=== PATIENT | female | born 1960 | race Caucasian/White ===

== ENCOUNTER 2017-09-07 09:25 | Observation (INO) ==
[2017-09-07] MEDS ORDERED: Aspirin 325 MG Tablet PO ONE (09:40)
--- NOTE | 2017-09-07 09:44 | ED ---
HPI General Chief Complaint: Chest Pain Stated Complaint: Chest Pain Time Seen by Provider: 09/07/17 09:36 Source: patient, RN notes reviewed and old records reviewed Mode of arrival: ambulatory Limitations: no limitations History of Present Illness HPI narrative: 57-year-old female notes central chest pain that started about 3 AM this morning that went away shortly prior to arrival. She states that she has not had this before and denies prior cardiac workup. She denies taking an aspirin yet today. MD complaint: chest pain Complete Quality Measures for STEMI Alert Patients Onset (ago): hour(s) Duration: constant Onset: during rest Severity: mild Quality: tightness Pain radiation: none Relieving factors: nothing Exacerbating factors: nothing Treatments prior to arrival chest pain: none Related Data Home Medications Medication Instructions Recorded Confirmed conjugated estrogens [Premarin] 0.9 mg PO DAILY 09/07/17 09/07/17 metoprolol succinate 50 mg PO DAILY 09/07/17 09/07/17 Allergies Allergy/AdvReac Type Severity Reaction Status Date / Time erythromycin base AdvReac Gastrointestinal Verified 09/07/17 09:41 Upset Review of Systems Except as stated in HPI: all other systems reviewed are negative PMFSH History History Provided By: Patient (Hypertension and on hormone replacement after her hysterectomy, cholecystectomy, denies family history) Medical History Medical History Alcohol abuse, daily use (Acute) History of hysterectomy (Acute) Hypertension (Acute) Surgical History Surgical History Hx of appendectomy (Acute) Hx of cholecystectomy (Acute) Social History Social History Substance History: No History of Abuse Second Hand Smoke Exposure: No Smoking Status: Former smoker How Often Do You Have a Drink Containing Alcohol: 4 or more times a week Recent Travel in [facility] within the Last 8 Weeks: No Recent Out of Country Travel within the Last 8 Weeks: No Exam Narrative Exam Narrative: GENERAL: 57-year-old female in no apparent distress SKIN: Focused skin assessment warm/dry. HEAD: Atraumatic. Normocephalic. EYES: Pupils equal and round. No scleral icterus. No injection or drainage. ENT: No nasal bleeding or discharge. Mucous membranes pink and moist. NECK: Trachea midline. No JVD. CARDIOVASCULAR: Regular rate and rhythm. No murmur appreciated. RESPIRATORY: No accessory muscle use. Clear to auscultation. Breath sounds equal bilaterally. GASTROINTESTINAL: Abdomen soft, nondistended. MUSCULOSKELETAL: No obvious deformities. No clubbing. No cyanosis NEUROLOGICAL: Awake and alert. No obvious cranial nerve deficits. Motor grossly within normal limits. Normal speech. PSYCHIATRIC: Appropriate mood and affect; insight and judgment normal. Course Reevaluation(s) Reevaluation #1: Patient updated and without new complaints. Agrees to chest pain center observation Initial Documented Vital Signs Temperature 98.5 F 09/07/17 09:27 Pulse Rate 69 09/07/17 09:27 Respiratory Rate 16 09/07/17 09:27 Blood Pressure 166/78 H 09/07/17 09:27 Pulse Oximetry 100 09/07/17 09:27 Last Documented Vital Signs Temperature 98.5 F 09/07/17 09:27 Pulse Rate 71 09/07/17 09:32 Respiratory Rate 16 09/07/17 09:27 Blood Pressure 174/92 H 09/07/17 09:44 Pulse Oximetry 99 09/07/17 09:44 Medical Decision Making MDM Narrative Medical decision making narrative: Will check blood work, x-ray and dose with aspirin and reevaluate Differential Diagnosis Differential Diagnosis: PE, musculoskeletal, gastritis, DC Lab Data Lab results reviewed: Yes I reviewed the patient's lab results. Result diagrams: 09/07/17 09:50 09/07/17 09:50 Lab Results 09/07/17 09/07/17 09/07/17 Range/Units 09:50 09:50 09:50 WBC 11.8 H (4.0-11.0) th/mm3 RBC 4.20 (4.00-5.30) mil/mm3 Hgb 12.5 (11.6-15.3) gm/dL Hct 37.3 (35.0-46.0) % MCV 88.9 (80.0-100.0) fL MCH 29.7 (27.0-34.0) pg MCHC 33.4 (32.0-36.0) % RDW 14.1 (11.6-17.2) % Plt Count 340 (150-450) th/mm3 MPV 8.7 (7.0-11.0) fL Neut % (Auto) 75.0 H (16.0-70.0) % Lymph % (Auto) 16.2 (9.0-44.0) % [place] % (Auto) 7.2 (0.0-8.0) % Eos % (Auto) 0.9 (0.0-4.0) % Baso % (Auto) 0.7 (0.0-2.0) % Neut # (Auto) 8.9 H (1.8-7.7) th/mm3 Lymph # (Auto) 1.9 (1.0-4.8) th/mm3 [place] # (Auto) 0.9 (0.0-0.9) th/mm3 Eos # (Auto) 0.1 (0.0-0.4) th/mm3 Baso # (Auto) 0.1 (0.0-0.2) th/mm3 WBC Differential . Differential Comment Auto diff final PT 9.9 (9.8-11.6) sec INR 1.0 Ratio APTT 24.8 (24.3-30.1) sec D-Dimer Quant (PE/DVT) 0.48 (0.00-0.50) mg/L FEU Sodium 139 (136-145) meq/L Potassium 4.3 (3.5-5.1) meq/L Chloride 106 (98-107) meq/L Carbon Dioxide 24.5 (21.0-32.0) meq/L Anion Gap 9 (5-15) meq/L BUN 11 (7-18) mg/dL Creatinine 0.65 (0.50-1.00) mg/dL Estimated GFR Greater than 89 (>89) mL/min Random Glucose 95 (74-106) mg/dL Calcium 8.5 (8.5-10.1) mg/dL Magnesium 2.0 (1.5-2.5) mg/dL Total Creatine Kinase 36 (26-192) U/L Troponin I Less than 0.02 L (0.02-0.05) ng/mL Imaging Data Attestation: I personally reviewed and interpreted this imaging study as follows : Radiologist's impression: Chest X-Ray 09/07/17 09:40 CONCLUSION: Negative examination. Discharge Plan Discharge Disposition Patient Disposition: 30 Still Patient Discharge Condition Condition: Stable Discharge Details Diagnosis: Chest pain Physicians Team ED Provider: Geno Ochoa Primary Care Provider: Primary Care Elenita Macias Attending Provider: Bette Schneider Discharge Interventions Interventions: Vital Signs Last Done: 09/07/17 09:32 Status ED Status: Admitted Observation Patient
--- NOTE | 2017-09-07 10:17 | XR ---
EXAM DATE: 09/07/2017 10:13 AM EDT AGE/SEX: 57 years / Female INDICATIONS: Chest pain. CLINICAL DATA: This is the patient's initial encounter. Patient reports that signs and symptoms have been present for 1 day and indicates a pain score of 6/10. MEDICAL/SURGICAL HISTORY: None. None. COMPARISON: No prior exams available for comparison. FINDINGS: Cardiomegaly. No consolidation or effusion. Probable fat pad right medial lung base. Osseous structur es are intact. CONCLUSION: Negative examination. Electronically signed by: Miguel Glaser MD 09/07/2017 10:16 AM EDT
[2017-09-07 10:18] LABS: Baso # (Auto) 0.1 th/mm3 (0.0-0.2); Baso % (Auto) 0.7 % (0.0-2.0); Eos # (Auto) 0.1 th/mm3 (0.0-0.4); Eos % (Auto) 0.9 % (0.0-4.0); Hematocrit 37.3 % (35.0-46.0); Hemoglobin 12.5 gm/dL (11.6-15.3); Lymph # (Auto) 1.9 th/mm3 (1.0-4.8); Lymph % (Auto) 16.2 % (9.0-44.0); Mean Corpuscular HGB Conc 33.4 % (32.0-36.0); Mean Corpuscular Hemoglobin 29.7 pg (27.0-34.0); Mean Corpuscular Volume 88.9 fL (80.0-100.0); Mean Platelet Volume 8.7 fL (7.0-11.0); Mono # (Auto) 0.9 th/mm3 (0.0-0.9); Mono % (Auto) 7.2 % (0.0-8.0); Neut # (Auto) 8.9 th/mm3 (1.8-7.7); Platelet Count 340 th/mm3 (150-450); Red Cell Distribution Width 14.1 % (11.6-17.2); White Blood Count 11.8 th/mm3 (4.0-11.0)
[2017-09-07 10:30] LABS: Activated Partial Thrombo Time 24.8 sec (24.3-30.1); Prothrombin Time 9.9 sec (9.8-11.6)
[2017-09-07 10:38] LABS: D-Dimer 0.48 mg/L FEU (0.00-0.50)
[2017-09-07 10:39] LABS: Anion Gap 9 meq/L (5-15); Blood Urea Nitrogen 11 mg/dL (7-18); Calcium 8.5 mg/dL (8.5-10.1); Carbon Dioxide 24.5 meq/L (21.0-32.0); Chloride 106 meq/L (98-107); Glomerular Filtration Rate Greater Than 89 mL/min (>89); Glucose,Random 95 mg/dL (74-106); Potassium 4.3 meq/L (3.5-5.1); Sodium 139 meq/L (136-145)
[2017-09-07 10:53] LABS: Creatine Kinase 36 U/L (26-192)
[2017-09-07] MEDS ORDERED: Acetaminophen 500 MG Tablet PO PRN (11:42)
--- NOTE | 2017-09-07 13:26 | P.HPCA ---
History of Present Illness Primary Care Physician: Primary Care Physician in [place], [place] Chief Complaint: Chest pain History of Present Illness: 57-year-old female with history of hypertension presents emergency room for further evaluation chest pain. Onset 3:30 AM. Discomfort awakened her from sleep. Location substernal. Characterized as tightness. Severe in severity. Initially felt discomfort may have been indigestion or gas. Radiation to right side of neck and right ear. No associated symptoms of nausea, vomiting, dyspnea , or diaphoresis. x 4 bowel movements between 7-8 am, during this time became diaphoretic. No precipitating or relieving factors. No particular movement or position made pain better or worse. Deep breathing did not worsen discomfort. Duration 5 hours. Discomfort gradually eased up around 8:15 AM. Called a friend to take her to ER. Once friend arrived, discomfort completely resolved. No further discomfort. Denies similar pain in the past. No known coronary artery disease. No recent illness, fever, cough, or injury. No history of GERD. Ate macaroni and cheese 3 hours before going to bed. No past cardiac testing. Family history noncontributory for early onset cardiovascular disease. - Diagnosis (1) Chest pain of unknown etiology (2) H/O: hypertension Review of Systems All other systems reviewed negative except as stated [facility] - History History Provided By: Patient (Hypertension and on hormone replacement after her hysterectomy, cholecystectomy, denies family history) - Medical History Medical History: Medical History (Last Reviewed 09/07/17 @ 14:04 by MUNIRA Blanton) Alcohol abuse, daily use History of hysterectomy Hypertension - Surgical History Surgical History: Surgical History (Last Reviewed 09/07/17 @ 14:04 by MUNIRA Blanton) Hx of cholecystectomy - Tobacco History Second Hand Smoke Exposure: No Tobacco Use In Past 30 Days: No Smoking Status: Former smoker - Alcohol History How Often Do You Have a Drink Containing Alcohol: 4 or more times a week - Substance Use History Substance History: No History of Abuse - Travel History Recent Travel in the [place] Within the Last 8 Weeks: No Recent Travel Out of the Country Within the Last 8 Weeks: No - Immunization History Tetanus Immunization: Unsure Hx Influenza Vaccine This Season: No Medications and Allergies Active Medications: Active Medications Acetaminophen (Tylenol) 500 mg PO Q4H PRN PRN Reason: HEADACHE Nitroglycerin (Nitrostat Sl) 0.4 mg SL Q5M PRN PRN Reason: CHEST PAIN Ondansetron HCl (Zofran Odt) 4 mg PO Q6H PRN PRN Reason: NAUSEA Sodium Chloride (Ns Flush) 2 ml IV.FLUSH BID LG Sodium Chloride (Ns Flush) 2 ml IV.FLUSH PRN PRN PRN Reason: FLUSH AFTER USING IV ACCESS Allergies Allergy/AdvReac Type Severity Reaction Status Date / Time erythromycin base AdvReac Gastrointestinal Verified 09/07/17 09:41 Upset Home Medications Medication Instructions Recorded Confirmed Type conjugated estrogens [Premarin] 0.9 mg PO DAILY 09/07/17 09/07/17 History metoprolol succinate 50 mg PO DAILY 09/07/17 09/07/17 History Exam Vital signs: Vital Signs 09/07/17 09:27 09/07/17 09:32 09/07/17 09:44 Temperature 98.5 F Pulse Rate 69 71 Respiratory Rate 16 Blood Pressure 166/78 H Blood Pressure [Left Arm] 172/90 H Blood Pressure [Right Arm] 174/92 H Pulse Oximetry 100 99 99 09/07/17 13:19 Temperature Pulse Rate 70 Respiratory Rate 19 Blood Pressure 170/78 H Blood Pressure [Left Arm] Blood Pressure [Right Arm] Pulse Oximetry 99 Intake & Output 09/06/17 09/07/17 09/07/17 18:59 06:59 18:59 Weight 71.668 kg Narrative: GENERAL: Alert WN, WD, NAD, pleasant, female HEAD: NC, AT EYES: Sclera clear, conjunctiva without injection, pupils equal and round ENT: Mucous membranes pink and moist NECK: Supple, no masses, trachea midline CV: RRR, without murmur, rub, gallop. Chest wall nontender with palpation. RESP: Clear lungs throughout bilateral, no crackles, wheeze, rhonchi, symmetrical chest rise, nonlabored, able to speak in full sentences ABD: Soft, NT, ND, no masses, positive bowel tones EXT: Pulses +2x4, no dependent edema MS: Normal tone x4 extremities, nontender, no obvious deformities, full range of motion NEURO: CN II through CN XII grossly intact, motor strength 5/5 PSYCH: A+O x3, flat affect, appropriate speech, mood, insight and judgment SKIN: Normal turgor, normal texture, no lesions, no rashes Results 09/07/17 09:50 09/07/17 09:50 Cardiac Enzymes 09/07/17 Range/Units 09:50 Troponin I Less than 0.02 L (0.02-0.05) ng/mL Coagulation 09/07/17 Range/Units 09:50 PT 9.9 (9.8-11.6) sec APTT 24.8 (24.3-30.1) sec CBC 09/07/17 Range/Units 09:50 WBC 11.8 H (4.0-11.0) th/mm3 RBC 4.20 (4.00-5.30) mil/mm3 Hgb 12.5 (11.6-15.3) gm/dL Hct 37.3 (35.0-46.0) % Plt Count 340 (150-450) th/mm3 Neut # (Auto) 8.9 H (1.8-7.7) th/mm3 Lymph # (Auto) 1.9 (1.0-4.8) th/mm3 [place] # (Auto) 0.9 (0.0-0.9) th/mm3 Eos # (Auto) 0.1 (0.0-0.4) th/mm3 Baso # (Auto) 0.1 (0.0-0.2) th/mm3 Comprehensive Metabolic Panel 09/07/17 Range/Units 09:50 Sodium 139 (136-145) meq/L Potassium 4.3 (3.5-5.1) meq/L Chloride 106 (98-107) meq/L Carbon Dioxide 24.5 (21.0-32.0) meq/L BUN 11 (7-18) mg/dL Creatinine 0.65 (0.50-1.00) mg/dL Calcium 8.5 (8.5-10.1) mg/dL Intake and Output 09/06/17 09/07/17 09/07/17 22:59 06:59 14:59 Other: Weight 71.668 kg Patient Weight 09/08/17 06:59 Weight 71.668 kg EKG interpretations - EKG EKG results cardiology: sinus rhythm, normal axis, normal QRS, normal ST/T Caprini VTE Risk Assessment Caprini VTE Risk Assessment: No/Low Risk (score <= 1) Caprini Risk Assessment Model: Point Value = 1 Point Value = 2 Point Value = 3 Point Value = 5 Age 41-60 Minor surgery BMI > 25 kg/m2 Swollen legs Varicose veins or History of unexplained or recurrent spontaneous Oral contraceptives or hormone replacement Sepsis (< 1 month) Serious lung disease, including pneumonia (< 1 month) Abnormal pulmonary function Acute myocardial infarction Congestive heart failure (< 1 month) History of inflammatory bowel disease Medical patient at bed rest Age 61-74 Arthroscopic surgery Major open surgery (> 45 min) Laparoscopic surgery (> 45 min) Malignancy Confined to bed (> 72 hours) Immobilizing plaster cast Central venous access Age >= 75 History of VTE Family history of VTE Factor V Leiden Prothrombin [id number] Lupus anticoagulant Anticardiolipin antibodies Elevated serum homocysteine Heparin-induced thrombocytopenia Other congenital or acquired thrombophilia Stroke (< 1 month) Elective arthroplasty Hip, pelvis, or leg fracture Acute spinal cord injury (< 1 month) Prophylaxis Regimen: Total Risk Factor Score Risk Level Prophylaxis Regimen 0-1 Low Early ambulation 2 Moderate Order ONE of the following: *Sequential Compression Device (SCD) *Heparin 5000 units SQ BID 3-4 Higher Order ONE of the following medications: *Heparin 5000 units SQ TID *Enoxaparin/Lovenox 40 mg SQ daily (WT < 150 kg, CrCl > 30 mL/min) *Enoxaparin/Lovenox 30 mg SQ daily (WT < 150 kg, CrCl > 10-29 mL/min) *Enoxaparin/Lovenox 30 mg SQ BID (WT < 150 kg, CrCl > 30 mL/min) AND/OR *Sequential Compression Device (SCD) 5 or more Highest Order ONE of the following medications: *Heparin 5000 units SQ TID (Preferred with Epidurals) *Enoxaparin/Lovenox 40 mg SQ daily (WT < 150 kg, CrCl > 30 mL/min) *Enoxaparin/Lovenox 30 mg SQ daily (WT < 150 kg, CrCl > 10-29 mL/min) *Enoxaparin/Lovenox 30 mg SQ BID (WT < 150 kg, CrCl > 30 mL/min) AND *Sequential Compression Device (SCD) Assessment and Plan - Assessment (1) Chest pain of unknown etiology Code(s): R07.89 - Other chest pain Status: Acute Onset Date: ~09/07/17 Plan: Admitted to chest pain center. Rule out ACS with 3 sets of EKGs and cardiac enzymes. Initial troponin and EKG unremarkable. Will be seen and evaluated by Dr. Bette Schneider. Discussed if ACS ruled out likely will proceed with cardiac testing later this evening or in a.m. This will be determined after evaluation by construction stonemason. Verbalizes understanding and agreeable to plan of care. (2) H/O: hypertension Code(s): Z86.79 - Personal history of other diseases of the circulatory system Status: Chronic Plan: Continue to monitor. Amlodipine 5 mg 1 dose now. Hypertensive since arrival into the ER.
[2017-09-07] MEDS ORDERED: amLODIPine 5 MG Tablet PO ONE (13:55)
[2017-09-07 14:25] LABS: Creatine Kinase 32 U/L (26-192)
--- NOTE | 2017-09-07 16:46 | ECG ---
Date Performed: 09/07/2017 Time Performed: 09:44:37 PTAGE: 57 years EKG: Sinus rhythm NORMAL ECG NO PREVIOUS TRACING DOCTOR: Bette Schneider Interpretating Date/Time 09/07/2017 16:44:45
[2017-09-07 17:14] LABS: Creatine Kinase 28 U/L (26-192)
[2017-09-08 08:30] VITALS: RESP 17
[2017-09-08] MEDS ORDERED: Regadenoson Inj 0.4 MG/5 ML Syringe IV.PUSH ONE (09:14)
--- NOTE | 2017-09-08 10:31 | ECG ---
Date Performed: 09/07/2017 Time Performed: 16:32:40 PTAGE: 57 years EKG: Sinus rhythm NORMAL ECG No change PREVIOUS TRACING : 09/07/2017 13.14 DOCTOR: Romario Hess Interpretating Date/Time 09/08/2017 10:30:06
--- NOTE | 2017-09-08 10:32 | ECG ---
Date Performed: 09/07/2017 Time Performed: 13:14:32 PTAGE: 57 years EKG: Sinus rhythm NORMAL ECG PREVIOUS TRACING : 09/07/2017 09.44 DOCTOR: Romario Hess Interpretating Date/Time 09/08/2017 10:30:17
--- NOTE | 2017-09-08 10:34 | TR ---
Date Performed: 09/07/2017 Time Performed: 17:36:16 DOCTOR: Romario Hess DRUG LIST: CLINICAL HISTORY: CHEST PAIN REASON FOR TEST: Chest pain REASON FOR ENDING: OBSERVATION: CONCLUSION: Alexis protocol completed. Stopped sec to exceeding target heart rate and leg fatigue . Poor exercise tolerance. Baseline nonspecific st changes, did not improve at peak. No ectopy. DIffu se st depression at peak. Normal bp response. No reprod chest discomfort. Recovery quick and unremark able. COMMENTS: Nonspecific ST depression with upsloping ST segments suggestive but not diagnostic of ischemia.
--- NOTE | 2017-09-08 10:34 | TR ---
Date Performed: 09/08/2017 Time Performed: 09:15:32 DOCTOR: Romario Hess DRUG LIST: CLINICAL HISTORY: REASON FOR TEST: REASON FOR ENDING: OBSERVATION: CONCLUSION: Lexiscan stress test was performed under standard four minute protocol. Radionuclide was injected one minute prior to ending the test. Nonspecific ST-T changes were noted but are not d iagnostic of ischemia. Nuclear imaging and interpretation are pending. COMMENTS:
--- NOTE | 2017-09-08 12:01 | NM ---
EXAM DATE: 09/08/2017 10:35 AM EDT AGE/SEX: 57 years / Female INDICATIONS:Angina. . Substernal chest pain radiating to the right neck and ear. CLINICAL DATA: This is the patient's initial encounter. Patient reports that signs and symptoms have been present for 1 day and indicates a pain score of 5/10. MEDICAL/SURGICAL HISTORY: Hypertension. Hysterectomy. COMPARISON: No prior exams available for comparison. DOSE: 8.8 mCi Tc 99m Myoview at rest 27.2 mCi [id number] at stress 0.4 mg Lexiscan STRESS SYMPTOMS: Shortness of breath. EJECTION FRACTION: 65 % TECHNIQUE: The patient underwent pharmacologic stress with infusion of prescribed dose. Continuous ECG tracing was monitored during stress. Gated SPECT imaging was performed after stress and conventi onal SPECT imaging was performed at rest. The examination was performed on a SPECT/CT scanner, both attenuation and non-corrected datasets were reviewed. FINDINGS: Distribution: The maximum perfused segment at stress is in the lateral wall. Perfusion Study: The pattern of perfusion at stress is within normal limits. Gated Study: There are intact wall motion and wall thickening without hypokinetic or dyskinetic segm ents. The ejection fraction is calculated at 65%. RISK CATEGORY: Low (<1% Annual Motality Rate) CONCLUSION: 1. No definite reversible perfusion defects are identified to suggest stress-induced myocardial isch emia. Electronically signed by: Miguel Glaser MD 09/08/2017 10:51 AM EDT
[2017-09-08 12:08] VITALS: BP 120/68; PULSE 76; TEMP 98.3; O2SAT 98
== END 2017-09-08 16:09 | disposition home or self-care (01) ==
LOC: NEPE 09:25 → NEPFCDU 09:25 → NEDA 09:25 → NEPFCDU 13:23
PROVIDERS: ADMIT Internal Medicine Interventional Cardiology; ATTEND Internal Medicine Interventional Cardiology